=== PATIENT | male | born 1975 | race Hispanic/Latino ===

== ENCOUNTER 2020-01-09 19:43 | Emergency (ER) | payer OTHER ==
[2020-01-09 21:15] LABS: BASOPHILS % (AUTO) 0.3 % (0.0-5.0); EOSINOPHILS % (AUTO) 1.2 % (0.0-8.0); LYMPHOCYTES % (AUTO) 20.7 % (21.0-51.0); MEAN CORPUSCULAR HEMOGLOBIN 28.7 pg (27.0-33.0); MEAN CORPUSCULAR HGB CONC 33.6 g/dL (32.0-36.0); MEAN CORPUSCULAR VOLUME 85.4 fL (79-99); NEUTROPHILS % (AUTO) 70.5 % (40.0-77.0); PLATELET COUNT (AUTO) 220 K/uL (130-400); RED BLOOD CELL COUNT(AUTO) 5.27 MIL/uL (4.50-6.20); RED CELL DISTRIBUTION WIDTH 12.1 % (11.0-15.5); WHITE BLOOD COUNT (AUTO) 14.6 K/uL (4.8-10.8)
[2020-01-09 21:36] LABS: CREATININE 1.1 mg/dL (0.5-1.5); POTASSIUM 4.3 mmol/L (3.5-5.1)
[2020-01-09 21:37] LABS: ALBUMIN 4.3 g/dL (3.5-5.0); BILIRUBIN,TOTAL 0.6 mg/dL (0.2-1.0)
[2020-01-09 22:23] LABS: ERYTHROCYTE SEDIMENTATION RATE 47 MM/HR (0-15)
[2020-01-09] MEDS ORDERED: SODIUM CHLORIDE 0.9% 1000ML 1,000 ML IV ONE (23:50)
[2020-01-09] MEDS ORDERED: ZOSYN 3.375GM+NS 50ML 50 ML IV ONE (23:51)
[2020-01-09] MEDS ORDERED: VANCOMYCIN 1GM+NS 250ML 250 ML IV ONE (23:52)
[2020-01-09] MEDS ORDERED: INSULIN HUMULIN R 100 UNIT/ML 3ML ONE (23:52)
[2020-01-10] MEDS ORDERED: LIDOCAINE HCL 1% 20 ML VIAL ONE (02:21)
[2020-01-10] MEDS ORDERED: LIDOCAINE 1%-EPI 1:100,000 20 ML VIAL IJ ONE (02:23)
== END 2020-01-10 03:31 | disposition home or self-care (01) ==
LOC: EDBD 19:43 → EDH 19:43
DX: L02.214 Cutaneous abscess of groin (principal); E11.9 Type 2 diabetes mellitus without complications; E78.5 Hyperlipidemia, unspecified; I10 Essential (primary) hypertension; E78.00 Pure hypercholesterolemia, unspecified
CPT/HCPCS: 10060; 36415; 76870; 80053; 82948; 83605; 85025; 85651; 87040; 96365; 96366; 96367; 96375; 99284; J1815; J2543; J3370; J3490; J7030

== ENCOUNTER 2021-06-18 12:30 | Inpatient (IN) | payer OTHER ==
[~2021-06-18] VITALS: Ht 170.2 cm; Wt 116.0 kg
[2021-06-18 13:01] LABS: BASOPHILS % (AUTO) 0.2 % (0.0-5.0); EOSINOPHILS % (AUTO) 0.5 % (0.0-8.0); HEMATOCRIT 38.7 % (42-54); LYMPHOCYTES % (AUTO) 14.3 % (21.0-51.0); MEAN CORPUSCULAR HEMOGLOBIN 28.9 pg (27.0-33.0); MEAN CORPUSCULAR HGB CONC 33.6 g/dL (32.0-36.0); MONOCYTES % (AUTO) 6.5 % (3.0-13.0); NEUTROPHILS % (AUTO) 78.2 % (40.0-77.0); PLATELET COUNT (AUTO) 265 K/uL (130-400); WHITE BLOOD COUNT (AUTO) 14.4 K/uL (4.8-10.8)
[2021-06-18 13:17] LABS: ALBUMIN 3.4 g/dL (3.5-5.0); BILIRUBIN,TOTAL 0.4 mg/dL (0.2-1.0); TOTAL PROTEIN, SERUM 8.5 g/dL (6.0-8.3)
[2021-06-18] MEDS ORDERED: KETOROLAC 15MG/ML VIAL (15MG/ML) IV ONE (15:00)
[2021-06-18] MEDS ORDERED: ONDANSETRON 4MG INJ IVP ONE (15:00)
[2021-06-18 15:02] LABS: APPEARANCE,URINE Cloudy (CLEAR); BILIRUBIN,URINE Negative (NEGATIVE); COLOR,URINE Yellow (YELLOW); GLUCOSE, URINE (UA) >=1000 mg/dL (NEGATIVE); KETONES,URINE Negative (NEGATIVE); LEUKOCYTE ESTERASE ,URINE Moderate (NEGATIVE); NITRATE,URINE Negative (NEGATIVE); OCCULT BLOOD,URINE Trace (NEGATIVE); PROTEIN,URINE Negative (NEGATIVE); UROBILINOGEN,URINE 0.2 mg/dL (0.2-1.0)
[2021-06-18] MEDS ORDERED: CEFAZOLIN SODIUM 1 GM VIAL IVP STA (15:09)
[2021-06-18] MEDS ORDERED: 0.9%NACL 1000ML 1,000 ML IV ONE (15:30)
[2021-06-18] MEDS ORDERED: INSULIN HUMULIN R 100 UNIT/ML 3ML IV ONE (15:30)
[2021-06-18 15:31] LABS: BACTERIA,URINE Few /HPF (None Seen); SQUAMOUS EPITHELIAL CELL,UR Moderate /HPF (0-2); YEAST,URINE BUDDING Rare /HPF (None Seen)
[2021-06-18] MEDS: MORPHINE 4 MG SYG IV PRN ×2 (16:00→21:43)
[2021-06-18] MEDS ORDERED: LIDOCAINE HCL 1% 10 ML VIAL ONE (16:38)
[2021-06-18] MEDS ORDERED: ACETAMINOPHEN 325 MG TAB PO PRN (20:30)
[2021-06-18] MEDS ORDERED: ONDANSETRON 4MG INJ IV PRN (20:30)
[2021-06-18] MEDS ORDERED: PRAV40TA3 PO (20:36)
[2021-06-18] MEDS ORDERED: METF-446 PO (20:36)
[2021-06-18] MEDS ORDERED: GLIP5TAB11 PO (20:36)
[2021-06-18] MEDS ORDERED: PIOG30TA70 PO (20:36)
[2021-06-18] MEDS ORDERED: LISI10TA24 PO (20:36)
[2021-06-18 20:47] LABS: BASOPHILS % (AUTO) 0.3 % (0.0-5.0); EOSINOPHILS % (AUTO) 0.6 % (0.0-8.0); HEMATOCRIT 35.9 % (42-54); LYMPHOCYTES % (AUTO) 19.4 % (21.0-51.0); MEAN CORPUSCULAR HEMOGLOBIN 28.6 pg (27.0-33.0); MEAN CORPUSCULAR HGB CONC 33.4 g/dL (32.0-36.0); MEAN CORPUSCULAR VOLUME 85.5 fL (79-99); MONOCYTES % (AUTO) 7.7 % (3.0-13.0); NEUTROPHILS % (AUTO) 71.6 % (40.0-77.0); PLATELET COUNT (AUTO) 253 K/uL (130-400); RED CELL DISTRIBUTION WIDTH 12.1 % (11.0-15.5); WHITE BLOOD COUNT (AUTO) 15.7 K/uL (4.8-10.8)
[2021-06-18] MEDS ORDERED: INSULIN HUMULIN R 100 UNIT/ML 3ML SQ SCH (21:00)
[2021-06-18 21:03] LABS: SPECIMENTYPE,BODY FLUID SYNOVIAL
[2021-06-18 21:04] LABS: APPEARANCE BODY FLUID SLIGHTLY CLOUDY (CLEAR); BODY FLUID RBC 1023 /cu. mm.; BODY FLUID WBC 32 /cu. mm.; COLOR,BODY FLUID PINK (LT YELLOW); TOTAL VOLUME,BODY FLUID 15 mL
[2021-06-18] MEDS: ZOSYN 3.375GM+NS 50ML 50 ML IV SCH (21:42)
[2021-06-18] MEDS: FAMOTIDINE 20MG TAB PO SCH (21:42)
[2021-06-19] MEDS: HYDROCODONE/ACETAMINOPHEN 5/325 MG TAB PO PRN ×3 (01:58→17:49)
[2021-06-19] MEDS: ZOSYN 3.375GM+NS 50ML 50 ML IV SCH ×3 (04:46→21:36)
[2021-06-19 06:13] LABS: CREATININE 0.9 mg/dL (0.5-1.5); MAGNESIUM 1.8 mg/dL (1.80-2.40); POTASSIUM 4.4 mmol/L (3.5-5.1)
[2021-06-19 06:16] LABS: HEMOGLOBIN A1C 12.1 % (4.0-6.0)
[2021-06-19 06:30] LABS: INR 1.15 (0.85-1.15); PROTHROMBIN TIME 12.4 SEC (9.6-11.6)
[2021-06-19 06:31] LABS: PARTIAL THROMBOPLASTIN TIME 31.6 SEC (26.3-35.5)
[2021-06-19] MEDS ORDERED: VANCOMYCIN PROTOCOL PER PHARMACY IV PRN (08:00)
[2021-06-19] MEDS ORDERED: VANCOMYCIN 1.75GM/250ML NS IV SCH ×2 (08:30)
[2021-06-19] MEDS: FAMOTIDINE 20MG TAB PO SCH ×2 (08:44→21:36)
[2021-06-19] MEDS: ENOXAPARIN SODIUM 40 MG/0.4 ML SYRINGE SQ SCH (08:44)
[2021-06-19] MEDS: LISINOPRIL 10 MG TABLET PO SCH (08:44)
[2021-06-19] MEDS: INSULIN HUMULIN R 100 UNIT/ML 3ML SQ SCH ×5 (11:23→21:36)
[2021-06-19] MEDS: MORPHINE 4 MG SYG IV PRN (11:24)
[2021-06-19] MEDS ORDERED: DiphenhydrAMINE HCL 50 MG/ML VIAL IVP PRN (17:30)
[2021-06-19] MEDS: SODIUM CHLORIDE IV SCH ×2 (17:39)
[2021-06-19] MEDS: VANCOMYCIN 1.5 GM IV SCH ×2 (17:39)
[2021-06-19] MEDS: 0.9%NACL 1000ML 1,000 ML IV SCH (17:48)
[2021-06-19] MEDS: INSULIN GLARGINE 100 UNITS/ML 10 ML VIAL SQ SCH (21:36)
[2021-06-19] MEDS: ATORVASTATIN 40 MG TABLET PO SCH (21:36)
[2021-06-20] VITALS (18 sets, daily range): BP systolic 110–159; BP diastolic 59–88
[2021-06-20] MEDS: 0.9%NACL 1000ML 1,000 ML IV SCH ×3 (04:49→23:30)
[2021-06-20] MEDS: ZOSYN 3.375GM+NS 50ML 50 ML IV SCH ×3 (04:52→20:39)
[2021-06-20 05:06] LABS: HEMATOCRIT 34.3 % (42-54); MEAN CORPUSCULAR HEMOGLOBIN 28.7 pg (27.0-33.0); MEAN CORPUSCULAR HGB CONC 33.8 g/dL (32.0-36.0); MEAN CORPUSCULAR VOLUME 84.9 fL (79-99); RED BLOOD CELL COUNT(AUTO) 4.04 MIL/uL (4.50-6.20); WHITE BLOOD COUNT (AUTO) 15.8 K/uL (4.8-10.8)
[2021-06-20] MEDS: HYDROCODONE/ACETAMINOPHEN 5/325 MG TAB PO PRN (05:07)
[2021-06-20 05:18] LABS: POTASSIUM 4.3 mmol/L (3.5-5.1)
[2021-06-20 05:21] LABS: INR 1.22 (0.85-1.15); PROTHROMBIN TIME 13.1 SEC (9.6-11.6)
[2021-06-20 05:22] LABS: PARTIAL THROMBOPLASTIN TIME 31.4 SEC (26.3-35.5)
[2021-06-20] MEDS: SODIUM CHLORIDE IV SCH ×6 (06:06→18:04)
[2021-06-20] MEDS: VANCOMYCIN 1.5 GM IV SCH ×6 (06:06→18:04)
[2021-06-20] MEDS: INSULIN HUMULIN R 100 UNIT/ML 3ML SQ SCH ×8 (07:30→20:32)
[2021-06-20] MEDS: ENOXAPARIN SODIUM 40 MG/0.4 ML SYRINGE SQ SCH (09:00)
[2021-06-20] MEDS: FAMOTIDINE 20MG TAB PO SCH ×2 (09:52→20:39)
[2021-06-20] MEDS: LISINOPRIL 10 MG TABLET PO SCH (09:52)
[2021-06-20] MEDS ORDERED: COMPOUND IV REFRIGERATED 1 EACH IVSOLN MISC PRN (12:00)
[2021-06-20] MEDS: MORPHINE 4 MG SYG IV PRN ×2 (13:22→22:17)
[2021-06-20] MEDS ORDERED: MIDAZOLAM HCL 1 MG/ML 2ML VIAL ONE (16:54)
[2021-06-20] MEDS ORDERED: FENTANYL CITRATE PF 50 MCG/1 ML 2ML VIAL ONE ×2 (16:55→18:28)
[2021-06-20] MEDS ORDERED: PROPOFOL 10 MG/ML 20ML VIAL IV ONE (16:56)
[2021-06-20] MEDS ORDERED: BUPIVACAINE/PF 0.5% 30ML VIAL ONE (17:58)
[2021-06-20] MEDS ORDERED: LIDOCAINE HCL 1% 20 ML VIAL ONE (17:58)
[2021-06-20] MEDS: ATORVASTATIN 40 MG TABLET PO SCH (20:39)
[2021-06-20] MEDS: INSULIN GLARGINE 100 UNITS/ML 10 ML VIAL SQ SCH (20:39)
[2021-06-21] MEDS: ZOSYN 3.375GM+NS 50ML 50 ML IV SCH ×3 (04:22→20:11)
[2021-06-21 04:23] VITALS: BP 129/80
[2021-06-21] MEDS: MORPHINE 4 MG SYG IV PRN ×3 (05:08→13:32)
[2021-06-21 05:48] LABS: HEMATOCRIT 33.9 % (42-54); MEAN CORPUSCULAR HEMOGLOBIN 28.5 pg (27.0-33.0); MEAN CORPUSCULAR HGB CONC 32.4 g/dL (32.0-36.0); MEAN CORPUSCULAR VOLUME 87.8 fL (79-99); RED BLOOD CELL COUNT(AUTO) 3.86 MIL/uL (4.50-6.20); RED CELL DISTRIBUTION WIDTH 11.9 % (11.0-15.5); WHITE BLOOD COUNT (AUTO) 14.4 K/uL (4.8-10.8)
[2021-06-21 06:19] LABS: ALBUMIN 2.5 g/dL (3.5-5.0); BILIRUBIN,TOTAL 0.7 mg/dL (0.2-1.0); CREATININE 1.1 mg/dL (0.5-1.5); POTASSIUM 4.2 mmol/L (3.5-5.1); TOTAL PROTEIN, SERUM 7.3 g/dL (6.0-8.3)
[2021-06-21] MEDS: SODIUM CHLORIDE IV SCH ×4 (06:42→17:21)
[2021-06-21] MEDS: VANCOMYCIN 1.5 GM IV SCH ×4 (06:42→17:21)
[2021-06-21] MEDS: INSULIN HUMULIN R 100 UNIT/ML 3ML SQ SCH ×7 (06:54→20:36)
[2021-06-21] MEDS: ENOXAPARIN SODIUM 40 MG/0.4 ML SYRINGE SQ SCH (08:36)
[2021-06-21] MEDS: FAMOTIDINE 20MG TAB PO SCH ×2 (08:37→19:35)
[2021-06-21] MEDS: LISINOPRIL 10 MG TABLET PO SCH (08:37)
[2021-06-21 08:53] VITALS: BP 149/80
[2021-06-21] MEDS: 0.9%NACL 1000ML 1,000 ML IV SCH ×2 (10:01→19:26)
[2021-06-21 11:01] VITALS: BP 136/78
[2021-06-21] MEDS: HYDROCODONE/ACETAMINOPHEN 5/325 MG TAB PO PRN ×2 (14:48→20:17)
[2021-06-21 15:52] VITALS: BP 135/68
[2021-06-21] MEDS: ATORVASTATIN 40 MG TABLET PO SCH (19:35)
[2021-06-21 20:00] VITALS: BP 168/84
[2021-06-21] MEDS: INSULIN GLARGINE 100 UNITS/ML 10 ML VIAL SQ SCH (20:35)
[2021-06-22] VITALS: BP 124/72
[2021-06-22] MEDS: HYDROCODONE/ACETAMINOPHEN 5/325 MG TAB PO PRN ×3 (02:55→16:04)
[2021-06-22 04:00] VITALS: BP 152/81
[2021-06-22] MEDS: ZOSYN 3.375GM+NS 50ML 50 ML IV SCH (04:13)
[2021-06-22] MEDS: 0.9%NACL 1000ML 1,000 ML IV SCH ×2 (04:46→15:57)
[2021-06-22] MEDS: SODIUM CHLORIDE IV SCH ×2 (05:18)
[2021-06-22] MEDS: VANCOMYCIN 1.5 GM IV SCH ×2 (05:18)
[2021-06-22 05:38] LABS: BASOPHILS % (AUTO) 0.2 % (0.0-5.0); EOSINOPHILS % (AUTO) 0.8 % (0.0-8.0); LYMPHOCYTES % (AUTO) 15.5 % (21.0-51.0); MEAN CORPUSCULAR HEMOGLOBIN 28.5 pg (27.0-33.0); MEAN CORPUSCULAR HGB CONC 33.1 g/dL (32.0-36.0); MONOCYTES % (AUTO) 7.8 % (3.0-13.0); NEUTROPHILS % (AUTO) 75.1 % (40.0-77.0); PLATELET COUNT (AUTO) 283 K/uL (130-400); RED BLOOD CELL COUNT(AUTO) 3.72 MIL/uL (4.50-6.20); RED CELL DISTRIBUTION WIDTH 11.9 % (11.0-15.5); WHITE BLOOD COUNT (AUTO) 13.7 K/uL (4.8-10.8)
[2021-06-22 05:53] LABS: ALBUMIN 2.2 g/dL (3.5-5.0); BILIRUBIN,TOTAL 0.5 mg/dL (0.2-1.0); CREATININE 1.2 mg/dL (0.5-1.5); POTASSIUM 3.8 mmol/L (3.5-5.1); TOTAL PROTEIN, SERUM 7.1 g/dL (6.0-8.3)
[2021-06-22] MEDS: INSULIN HUMULIN R 100 UNIT/ML 3ML SQ SCH ×7 (06:31→21:27)
[2021-06-22] MEDS ORDERED: CEFTRIAXONE 2GM VIAL IVP SCH (08:30)
[2021-06-22 08:49] VITALS: BP 140/76
[2021-06-22] MEDS: ENOXAPARIN SODIUM 40 MG/0.4 ML SYRINGE SQ SCH (09:16)
[2021-06-22] MEDS: FAMOTIDINE 20MG TAB PO SCH ×2 (09:17→20:26)
[2021-06-22] MEDS: LISINOPRIL 10 MG TABLET PO SCH (09:17)
[2021-06-22] MEDS ORDERED: LIDOCAINE 5% TOPICAL PATCH TP SCH (11:00)
[2021-06-22] MEDS: KETOROLAC 15MG/ML VIAL (15MG/ML) IV PRN ×2 (11:28→18:20)
[2021-06-22 12:00] VITALS: BP 135/73
[2021-06-22] MEDS: METRONIDAZOLE 500 MG TABLET PO SCH ×2 (13:14→20:26)
[2021-06-22] MEDS: CEFUROXIME AXETIL 250 MG TABLET PO SCH (13:14)
[2021-06-22 16:00] VITALS: BP 154/79
[2021-06-22 20:00] VITALS: BP 140/73
[2021-06-22] MEDS: ATORVASTATIN 40 MG TABLET PO SCH (20:26)
[2021-06-22] MEDS: INSULIN GLARGINE 100 UNITS/ML 10 ML VIAL SQ SCH (21:25)
[2021-06-23] VITALS: BP 150/90
[2021-06-23] MEDS: CEFUROXIME AXETIL 250 MG TABLET PO SCH ×2 (00:37→12:10)
[2021-06-23] MEDS: 0.9%NACL 1000ML 1,000 ML IV SCH ×2 (00:38→12:10)
[2021-06-23] MEDS: HYDROCODONE/ACETAMINOPHEN 5/325 MG TAB PO PRN (03:01)
[2021-06-23 04:00] VITALS: BP 141/63
[2021-06-23] MEDS: METRONIDAZOLE 500 MG TABLET PO SCH ×3 (04:13→20:48)
[2021-06-23] MEDS: KETOROLAC 15MG/ML VIAL (15MG/ML) IV PRN ×3 (05:25→20:48)
[2021-06-23] MEDS: INSULIN HUMULIN R 100 UNIT/ML 3ML SQ SCH ×7 (06:17→21:00)
[2021-06-23 06:20] LABS: RETICULOCYTE % (AUTO) 0.98 % (0.42-2.23)
[2021-06-23 06:24] LABS: BASOPHILS % (AUTO) 0.2 % (0.0-5.0); EOSINOPHILS % (AUTO) 0.7 % (0.0-8.0); HEMATOCRIT 32.9 % (42-54); LYMPHOCYTES % (AUTO) 13.6 % (21.0-51.0); MEAN CORPUSCULAR HEMOGLOBIN 28.8 pg (27.0-33.0); MEAN CORPUSCULAR HGB CONC 32.5 g/dL (32.0-36.0); MEAN CORPUSCULAR VOLUME 88.7 fL (79-99); MONOCYTES % (AUTO) 6.4 % (3.0-13.0); NEUTROPHILS % (AUTO) 78.4 % (40.0-77.0); PLATELET COUNT (AUTO) 320 K/uL (130-400); RED BLOOD CELL COUNT(AUTO) 3.71 MIL/uL (4.50-6.20); RED CELL DISTRIBUTION WIDTH 11.9 % (11.0-15.5); WHITE BLOOD COUNT (AUTO) 12.3 K/uL (4.8-10.8)
[2021-06-23 07:10] LABS: ALBUMIN 2.2 g/dL (3.5-5.0); BILIRUBIN,TOTAL 0.3 mg/dL (0.2-1.0); CREATININE 1.2 mg/dL (0.5-1.5); POTASSIUM 3.8 mmol/L (3.5-5.1); TOTAL PROTEIN, SERUM 7.3 g/dL (6.0-8.3)
[2021-06-23 08:00] VITALS: BP 144/79
[2021-06-23] MEDS: FAMOTIDINE 20MG TAB PO SCH ×2 (09:01→20:48)
[2021-06-23] MEDS: ENOXAPARIN SODIUM 40 MG/0.4 ML SYRINGE SQ SCH (09:02)
[2021-06-23] MEDS: LISINOPRIL 10 MG TABLET PO SCH (09:02)
[2021-06-23 12:00] VITALS: BP 151/84
[2021-06-23 16:00] VITALS: BP_SYST 120; BP_SYST 153; BP_DIAS 64; BP_DIAS 84
[2021-06-23] MEDS ORDERED: LACTULOSE 20 GM/30 ML UDCUP PO PRN (18:00)
[2021-06-23] MEDS ORDERED: DOCUSATE SODIUM 100 MG CAP PO SCH (19:00)
[2021-06-23] MEDS ORDERED: POLYETHYLENE GLYCOL 3350 17 GM POWD.PACK PO ONE (19:00)
[2021-06-23 20:00] VITALS: BP 153/81
[2021-06-23] MEDS: ATORVASTATIN 40 MG TABLET PO SCH (20:48)
[2021-06-23] MEDS: INSULIN GLARGINE 100 UNITS/ML 10 ML VIAL SQ SCH (22:31)
[2021-06-24] VITALS (7 sets, daily range): BP systolic 107–165; BP diastolic 63–84
[2021-06-24] MEDS: CEFUROXIME AXETIL 250 MG TABLET PO SCH ×2 (01:30→11:56)
[2021-06-24] MEDS: METRONIDAZOLE 500 MG TABLET PO SCH ×3 (05:13→21:38)
[2021-06-24 06:14] LABS: BASOPHILS % (AUTO) 0.2 % (0.0-5.0); HEMATOCRIT 31.5 % (42-54); LYMPHOCYTES % (AUTO) 14.2 % (21.0-51.0); MEAN CORPUSCULAR HEMOGLOBIN 28.2 pg (27.0-33.0); MEAN CORPUSCULAR VOLUME 85.4 fL (79-99); MONOCYTES % (AUTO) 6.9 % (3.0-13.0); NEUTROPHILS % (AUTO) 77.1 % (40.0-77.0); PLATELET COUNT (AUTO) 314 K/uL (130-400); RED BLOOD CELL COUNT(AUTO) 3.69 MIL/uL (4.50-6.20); RED CELL DISTRIBUTION WIDTH 11.9 % (11.0-15.5); WHITE BLOOD COUNT (AUTO) 13.4 K/uL (4.8-10.8)
[2021-06-24 06:28] LABS: CREATININE 1.1 mg/dL (0.5-1.5); POTASSIUM 3.9 mmol/L (3.5-5.1)
[2021-06-24] MEDS: INSULIN HUMULIN R 100 UNIT/ML 3ML SQ SCH ×7 (06:42→21:36)
[2021-06-24] MEDS ORDERED: POLYETHYLENE GLYCOL 3350 17 GM POWD.PACK ONE (09:23)
[2021-06-24] MEDS: AMLODIPINE 5 MG TAB PO SCH (09:28)
[2021-06-24] MEDS: FAMOTIDINE 20MG TAB PO SCH ×2 (09:28→21:38)
[2021-06-24] MEDS: LISINOPRIL 10 MG TABLET PO SCH (09:28)
[2021-06-24] MEDS: NAPROXEN 500 MG TABLET PO SCH ×2 (09:28→21:38)
[2021-06-24] MEDS: ENOXAPARIN SODIUM 40 MG/0.4 ML SYRINGE SQ SCH (09:29)
[2021-06-24] MEDS: POLYETHYLENE GLYCOL 3350 17 GM POWD.PACK PO SCH (09:30)
[2021-06-24] MEDS: KETOROLAC 15MG/ML VIAL (15MG/ML) IV PRN ×2 (10:45→18:47)
[2021-06-24] MEDS ORDERED: SOLU-MEDROL 40MG VIAL IVP ONE (14:30)
[2021-06-24] MEDS: INSULIN GLARGINE 100 UNITS/ML 10 ML VIAL SQ SCH (21:37)
[2021-06-24] MEDS: ATORVASTATIN 40 MG TABLET PO SCH (21:38)
[2021-06-25] MEDS: CEFUROXIME AXETIL 250 MG TABLET PO SCH ×2 (00:41→12:21)
[2021-06-25 03:52] VITALS: BP 136/64
[2021-06-25] MEDS: METRONIDAZOLE 500 MG TABLET PO SCH ×2 (05:04→12:21)
[2021-06-25] MEDS: INSULIN HUMULIN R 100 UNIT/ML 3ML SQ SCH ×4 (07:30→12:44)
[2021-06-25 07:44] LABS: CREATININE 1.1 mg/dL (0.5-1.5); POTASSIUM 3.9 mmol/L (3.5-5.1)
[2021-06-25 08:00] VITALS: BP 140/81
[2021-06-25 08:13] LABS: BASOPHILS % (AUTO) 0.2 % (0.0-5.0); EOSINOPHILS % (AUTO) 0.1 % (0.0-8.0); HEMATOCRIT 33.8 % (42-54); LYMPHOCYTES % (AUTO) 9.1 % (21.0-51.0); MEAN CORPUSCULAR HEMOGLOBIN 28.5 pg (27.0-33.0); MEAN CORPUSCULAR HGB CONC 33.1 g/dL (32.0-36.0); MONOCYTES % (AUTO) 4.8 % (3.0-13.0); NEUTROPHILS % (AUTO) 85.1 % (40.0-77.0); PLATELET COUNT (AUTO) 351 K/uL (130-400); RED BLOOD CELL COUNT(AUTO) 3.93 MIL/uL (4.50-6.20); RED CELL DISTRIBUTION WIDTH 11.7 % (11.0-15.5); WHITE BLOOD COUNT (AUTO) 15.9 K/uL (4.8-10.8)
[2021-06-25] MEDS: POLYETHYLENE GLYCOL 3350 17 GM POWD.PACK PO SCH (09:00)
[2021-06-25] MEDS: AMLODIPINE 5 MG TAB PO SCH (09:47)
[2021-06-25] MEDS: LISINOPRIL 10 MG TABLET PO SCH (09:47)
[2021-06-25] MEDS: FAMOTIDINE 20MG TAB PO SCH (09:47)
[2021-06-25] MEDS: ENOXAPARIN SODIUM 40 MG/0.4 ML SYRINGE SQ SCH (09:48)
[2021-06-25] MEDS: NAPROXEN 500 MG TABLET PO SCH (09:52)
[2021-06-25 11:29] VITALS: BP 139/78
[2021-06-25] MEDS ORDERED: METR-172 PO (12:02)
[2021-06-25] MEDS ORDERED: CEFU500T67 PO (12:02)
== END 2021-06-25 16:00 | disposition home or self-care (01) | DRG 256 ==
LOC: EDH 12:30 → EDHIP 20:09 → 3BH 06-20 08:18
PROVIDERS: ADMIT Internal Medicine; ATTEND Internal Medicine
PROC: 0Y6P0Z1 Detachment at Right 1st Toe, High, Open Approach (ICD-10-PCS; principal; 2021-06-20 18:15)
DX: E11.52 Type 2 diabetes mellitus with diabetic peripheral angiopathy with gangrene (principal); N39.0 Urinary tract infection, site not specified; M86.171 Other acute osteomyelitis, right ankle and foot; Z68.41 Body mass index [BMI] 40.0-44.9, adult; E11.621 Type 2 diabetes mellitus with foot ulcer; E11.65 Type 2 diabetes mellitus with hyperglycemia; E78.5 Hyperlipidemia, unspecified; L97.519 Non-pressure chronic ulcer of other part of right foot with unspecified severity; M77.30 Calcaneal spur, unspecified foot; Z20.822 Contact with and (suspected) exposure to COVID-19; I10 Essential (primary) hypertension; E78.00 Pure hypercholesterolemia, unspecified; M10.9 Gout, unspecified; F17.210 Nicotine dependence, cigarettes, uncomplicated; E11.69 Type 2 diabetes mellitus with other specified complication; D64.9 Anemia, unspecified; E66.9 Obesity, unspecified; B95.4 Other streptococcus as the cause of diseases classified elsewhere; B96.20 Unspecified Escherichia coli [E. coli] as the cause of diseases classified elsewhere; Z56.0 Unemployment, unspecified; Z79.2 Long term (current) use of antibiotics; Z91.19 Patient's noncompliance with other medical treatment and regimen
CPT/HCPCS: 36415; 71045; 73562; 73630; 73700; 73718; 74018; 80048; 80053; 80202; 81001; 82550; 82607; 82728; 82746; 82948; 83036; 83540; 83550; 83605; 83735; 83880; 84100; 84145; 84484; 84550; 85025; 85027; 85045; 85610; 85730; 86140; 87040; 87070; 87071; 87076; 87077; 87088; 87186; 87205; 87635; 89051; 93005; 93925; 97039; C9803; G0378; J0690; J0696; J1650; J1815; J1885; J2250; J2270; J2405; J2543; J2704; J2920; J3010; J3370; J3490; J7030; J7050